=== PATIENT | male | born 1990 | race Two or more races ===

== ENCOUNTER 2016-12-08 06:02 | Emergency (ER) | payer SELFPAY ==
[~2016-12-08] VITALS: Ht 175.3 cm; Wt 72.6 kg
--- NOTE | 2016-12-08 06:20 | PHYS DOC ---
Adult General Chief Complaint Chief Complaint: HEMATEMESIS/VOMITING BLOOD HPI HPI Patient is a 26 year old -[place] male who presents with nausea vomiting diarrhea. He states he drove from [place] to see his ex and his baby. He states both of them are sick with nausea vomiting diarrhea. He states his symptoms started this morning approximately 6 hours prior to arrival to the ER he states that approximately 10 nonbloody loose bowel movements and has vomited 6 times with nonbloody nonbilious vomiting. He denies any abdominal pain but states he has generalized body aches. He denies any black tarry stools or blood in his stools. Denies any fevers chills shortness of breath or chest discomfort. He denies any recent travel outside the country. He denies any past medical history or surgical history. He does state he's coughed up some sputum and had a couple streaks of blood in it but denies any hemoptysis otherwise denies any shortness of breath fevers, cough or other concerns. He denies any leg pain or calf tenderness. Review of Systems Review of Systems Constitutional: Denies fever or chills [] Eyes: Denies change in visual acuity, redness, or eye pain [] HENT: Denies nasal congestion or sore throat [] Respiratory: Denies cough or shortness of breath [] Cardiovascular: No additional information not addressed in HPI [] GI: Denies abdominal pain,, bloody stools, positive for nausea, vomiting diarrhea [] : Denies dysuria or hematuria [] Musculoskeletal: Denies back pain or joint pain [] Integument: Denies rash or skin lesions [] Neurologic: Denies headache, focal weakness or sensory changes [] Endocrine: Denies polyuria or polydipsia [] Current Medications Current Medications Current Medications Medications (Trade) Dose Ordered Sig/Armando Start Time Stop Time Status Last Admin Dose Admin Ondansetron HCl (Zofran) 4 mg 1X ONCE 12/08/16 07:00 12/08/16 07:01 DC 12/08/16 07:04 4 MG Sodium Chloride 1,000 ml @ 1,000 mls/hr 1X ONCE 12/08/16 07:00 12/08/16 07:59 12/08/16 07:05 1,000 MLS/HR Allergies Allergies Allergies Coded Allergies Type Severity Reaction Last Updated Verified No Known Drug Allergies 12/08/16 No Physical Exam Physical Exam Constitutional: Well developed, well nourished, no acute distress, non-toxic appearance. [] HENT: Normocephalic, atraumatic, bilateral external ears normal, oropharynx moist, no oral exudates, nose normal. [] Eyes: PERRLA, EOMI, conjunctiva normal, no discharge. [] Neck: Normal range of motion, no tenderness, supple, no stridor. [] Cardiovascular:Heart rate regular rhythm, no murmur [] Lungs & Thorax: Bilateral breath sounds clear to auscultation [] Abdomen: Bowel sounds normal, soft, no tenderness, no masses, no pulsatile masses. [] Skin: Warm, dry, no erythema, no rash. [] Back: No tenderness, no CVA tenderness. [] Extremities: No tenderness, no cyanosis, no clubbing, ROM intact, no edema. [] Neurologic: Alert and oriented X 3, normal motor function, normal sensory function, no focal deficits noted. [] Psychologic: Affect normal, judgement normal, mood normal. [] Current Patient Data Vital Signs Vital Signs Date Time Temp Pulse Resp B/P (MAP) Pulse Ox O2 Delivery O2 Flow Rate FiO2 12/08/16 06:15 98.7 73 16 125/72 (89) 98 Room Air 98.7 Lab Values Laboratory Tests Test 12/08/16 06:15 White Blood Count 11.0 x10^3/uL (4.0-11.0) Red Blood Count 5.37 x10^6/uL (4.30-5.70) Hemoglobin 15.3 g/dL (13.0-17.5) Hematocrit 46.4 % (39.0-53.0) Mean Corpuscular Volume 87 fL (79-100) Mean Corpuscular Hemoglobin 28 pg (25-35) Mean Corpuscular Hemoglobin Concent 33 g/dL (31-37) Red Cell Distribution Width 13.0 % (11.5-14.5) Platelet Count 263 x10^3/uL (140-400) Neutrophils (%) (Auto) 89 % (31-73) H Lymphocytes (%) (Auto) 5 % (24-48) L Monocytes (%) (Auto) 6 % (0-9) Eosinophils (%) (Auto) 1 % (0-3) Basophils (%) (Auto) 0 % (0-3) Neutrophils # (Auto) 9.8 x10^3uL (1.8-7.7) H Lymphocytes # (Auto) 0.5 x10^3/uL (1.0-4.8) L Monocytes # (Auto) 0.6 x10^3/uL (0.0-1.1) Eosinophils # (Auto) 0.1 x10^3/uL (0.0-0.7) Basophils # (Auto) 0.0 x10^3/uL (0.0-0.2) Platelet Estimate Pending Sodium Level 142 mmol/L (136-145) Potassium Level 4.7 mmol/L (3.5-5.1) Chloride Level 102 mmol/L (98-107) Carbon Dioxide Level 31 mmol/L (21-32) Anion Gap 9 (6-14) Blood Urea Nitrogen 19 mg/dL (8-26) Creatinine 1.1 mg/dL (0.7-1.3) Estimated GFR (Cockcroft-Gault) 80.9 Glucose Level 123 mg/dL (70-99) H Calcium Level 9.6 mg/dL (8.5-10.1) Total Bilirubin 0.6 mg/dL (0.2-1.0) Direct Bilirubin 0.1 mg/dL (0.0-0.2) Aspartate Amino Transferase (AST) 39 U/L (15-37) H Alanine Aminotransferase (ALT) 43 U/L (16-63) Alkaline Phosphatase 63 U/L (46-116) Total Protein 8.4 g/dL (6.4-8.2) H Albumin 4.7 g/dL (3.4-5.0) Laboratory Tests 12/08/16 06:15 Laboratory Tests 12/08/16 06:15 EKG EKG [] Radiology/Procedures Radiology/Procedures [] Impressions: Nausea vomiting diarrhea Course & Med Decision Making Course & Med Decision Making Pertinent Labs and Imaging studies reviewed. (See chart for details) I'm not concerned about his coughing up a small amount of blood streaked sputum. He has not coughed up any blood here. He is very well appearing - [place] male in no acute distress. His vitals are all normal. He does not have any shortness of breath, or leg pain, his exam is benign. He hasn't had any shortness of breath or coughing in the ER. He's received a liter of fluids and IV Zofran and feels better. He is being discharged with ODT Zofran and instructed to follow-up for his blood streaked sputum if he gets worse or he develops fevers or shortness of breath to return back to the ER. He's also instructed that this viral gastroenteritis syndrome or last 1-2 days. If he has any blood in his stools, vomiting, fevers, uncontrolled nausea vomiting or other concerns return back to ER. Otherwise he is encouraged to push fluids and take ODT Zofran as needed. Dragon Disclaimer Dragon Disclaimer This electronic medical record was generated, in whole or in part, using a voice recognition dictation system. Departure Departure Impression: Primary Impression: Nausea vomiting and diarrhea Disposition: 01 HOME, SELF-CARE Condition: STABLE Patient Instructions: Diarrhea Additional Instructions: You were seen today for your nausea vomiting diarrhea. You received IV fluids and antinausea meds. You now being discharged home with a prescription of oral dissolvable tablets of Zofran which he can use as needed and as instructed for nausea. He should push fluids today by drinking Gatorade or other similar substances. Try to avoid spicy food or other substances that can upset her stomach. If you develop abdominal pain, blood in your stools, fevers, or other concerns please return back to emergency department. Your symptoms should go away in the next 2 days. Scripts Ondansetron (ZOFRAN ODT) 4 Mg Tab.rapdis 1 TAB SL Q8HRS, #10 TAB Prov: BRYCE RODRIGUEZ MD 12/08/16 BRYCE RODRIGUEZ MD Dec 08, 2016 06:20
[2016-12-08] MEDS ORDERED: ONDA4TAB10 SL (06:44)
[2016-12-08 06:52] LABS: BASO % 0 % (0-3); EOS % 1 % (0-3); HEMATOCRIT 46.4 % (39.0-53.0); HEMOGLOBIN 15.3 g/dL (13.0-17.5); LYMPH # 0.5 x10^3/uL (1.0-4.8); LYMPH % 5 % (24-48); MEAN CORPUSCULAR HEMOGLOBIN 28 pg (25-35); MEAN CORPUSCULAR HGB CONC 33 g/dL (31-37); MEAN CORPUSCULAR VOLUME 87 fL (79-100); MONO % 6 % (0-9); NEUT % 89 % (31-73); PLATELET COUNT 263 x10^3/uL (140-400); RED BLOOD COUNT 5.37 x10^6/uL (4.30-5.70)
[2016-12-08 06:57] LABS: CALCIUM 9.6 mg/dL (8.5-10.1); CREATININE 1.1 mg/dL (0.7-1.3); GFR 80.9; POTASSIUM 4.7 mmol/L (3.5-5.1)
[2016-12-08 07:00] VITALS: BP 108/55
[2016-12-08] MEDS ORDERED: IV NORMAL SALINE 1000ML BAG 1,000 ML IV ONE (07:00)
[2016-12-08] MEDS ORDERED: ONDANSETRON PF 4 MG/2 ML VIAL. IV ONE (07:00)
[2016-12-08 07:03] LABS: ALBUMIN 4.7 g/dL (3.4-5.0); DIRECT BILIRUBIN 0.1 mg/dL (0.0-0.2); TOTAL BILIRUBIN 0.6 mg/dL (0.2-1.0); TOTAL PROTEIN 8.4 g/dL (6.4-8.2)
[2016-12-08 08:45] LABS: % EOS 1 % (0-5); PLT ESTIMATE ADEQUATE (ADEQUATE)
== END 2016-12-08 07:20 | disposition home or self-care (01) ==
LOC: ER 06:02
DX: R11.2 Nausea with vomiting, unspecified (principal); R19.7 Diarrhea, unspecified
CPT/HCPCS: 36415; 80048; 80076; 85007; 85025; 96374; 99284; J2405; J7030